=== PATIENT | male | born 1955 | race Caucasian/White ===

== ENCOUNTER → 2017-02-24 | Day surgery (SDC) | payer BC ==
[~2017-02-24] MED LIST: ASPI-482 PO; ATOR20TA58 PO; CHOL200074 PO; IV RINGERS,LACTATED 1000ML 1,000 ML IV SCH; LIDOCAINE 2% PF Vial for OR 5 ML VIAL. ONE; LISI1TAB7 PO; OMEG500C PO; PROPOFOL 0 ML IV ONE
[2017-02-24 15:43] VITALS: BP 133/72
--- NOTE | 2017-02-25 04:31 | CONS ---
DATE OF CONSULTATION: 02/24/2017 REASON FOR CONSULTATION: Possible meat impaction. HISTORY OF PRESENT ILLNESS: This is a 62-year-old male with past medical history significant for hypertension, hyperlipidemia, osteoarthrosis, status post tonsillectomy and ankle fracture, is seen with food impaction today after eating lunch at [facility] physicians' lounge. He has had increased difficulty with maintaining hydration, is unable to swallow liquids or solids, has coughed up some carrots, but feels a piece of turkey still may be stuck. He does have intermittent difficulties with dysphagia. He has had no chronic heartburn, no change in weight, no bleeding. He is otherwise without additional complaints. PAST MEDICAL HISTORY: Hypertension, hyperlipidemia, osteoarthrosis, status post tonsillectomy and ankle fracture. MEDICATIONS: Presently include aspirin, atorvastatin, vitamin D, lisinopril/hydrochlorothiazide, omega 3. ALLERGIES: None. FAMILY AND SOCIAL HISTORY: He is employed. Does not drink or smoke. He is an MD anesthesiologist. REVIEW OF SYSTEMS: Per records. PHYSICAL EXAMINATION: VITAL SIGNS: Temperature is 98.5, pulse 87, respiratory rate 20, blood pressure ____. HEENT: Reveals a normocephalic, atraumatic head. Pupils and extraocular muscles not tested. Sclerae anicteric. NECK: Supple. LUNGS: Clear. CARDIOVASCULAR: Reveals an S1, S2 without S3, S4 or appreciable murmur. ABDOMEN: Soft abdomen, normal bowel sounds, without appreciable hepatosplenomegaly or crepitus. EXTREMITIES: Reveal no cyanosis, clubbing or edema. IMPRESSION: Dysphagia, most likely secondary to Schatzki's ring, Mora's, malignancy, achalasia certainly are possible as well. We will therefore recommend upper endoscopy, possible biopsy and dilatation. Risks and benefits of the procedure have been discussed with the patient who is willing to proceed at this time. I would like to thank ____ for allowing me to consult and participate in the patient's care. NEAL ROPER MD DR: MILAGRO/fatuma JOB#: [id number] / [id number]
--- NOTE | 2017-02-26 11:10 | PATHOLOGY ---
PATHOLOGY REPORT * * * * * * * * FINAL DIAGNOSIS: Gastric biopsies, gastric ulcers: - Chronic gastritis, mild. (JPM:logan; 02/26/2017) COMMENT: Sections of the gastric biopsy reveal segments of gastric antral mucosa showing congestion and predominantly superficial, mild chronic inflammation. There are scattered admixed eosinophils. An immunoperoxidase stain for Helicobacter is obtained. No Helicobacter organisms are identified. There is no evidence of malignancy. Special stain performed: Immunoperoxidase stain for Helicobacter. (JPM:logan; 02/26/2017) REPORT ELECTRONICALLY SIGNED BY: Yvan Valle M.D. DATE/TIME: 02/26/2017 11:09 * * * * * * * * GROSS PATHOLOGY: Received in formalin labeled "[place], biopsy gastric ulcers," are two segments of muniz soft tissue measuring 0.3 and 0.4 cm in maximum dimension. The specimen is submitted entirely in cassette A1. (JPM; 02/25/17) INITIAL CPT CODE(S): A; 63071, 19130 Professional services performed [place] [facility] [address] Technical services performed by [facility] at [address] [place] [address]. SPECIMEN(S) RECEIVED: A.Gastric ulcers CLINICAL HISTORY: Dysphagia; gastric ulcer PATIENT: ZE HILL /AGE: 701/28/1955 (Age: 62) PATIENT #: [id number] ALT CASE #: SPECIMEN COLLECTION DATE: 02/24/2017 SPECIMEN RECEIVED DATE: 02/25/2017 [facility] [place] [address] - PHONE: [phone] * * * END OF REPORT * * *
== END | disposition home or self-care (01) ==
LOC: SURG 14:27
PROVIDERS: ATTEND Internal Medicine Gastroenterology
DX: K22.2 Esophageal obstruction (principal); K25.9 Gastric ulcer, unspecified as acute or chronic, without hemorrhage or perforation; E78.00 Pure hypercholesterolemia, unspecified; I10 Essential (primary) hypertension; E11.9 Type 2 diabetes mellitus without complications; Z86.39 Personal history of other endocrine, nutritional and metabolic disease
CPT/HCPCS: 43239; 43450; J2001; J2704

== ENCOUNTER → 2017-07-09 | Day surgery (SDC) | payer BC ==
[~2017-07-09] MED LIST changes: -ASPI-482 PO; -ATOR20TA58 PO; -CHOL200074 PO; -IV RINGERS,LACTATED 1000ML 1,000 ML IV SCH; +LIDOCAINE 2% PF Vial for OR 5 ML VIAL.; -LIDOCAINE 2% PF Vial for OR 5 ML VIAL. ONE; -LISI1TAB7 PO; -OMEG500C PO; +ONDANSETRON PF 4 MG/2 ML VIAL.; -PROPOFOL 0 ML IV ONE; +PROPOFOL 20 ML IV
== END | disposition home or self-care (01) ==
LOC: SURG 11:12
DX: K29.50 Unspecified chronic gastritis without bleeding (principal); K25.7 Chronic gastric ulcer without hemorrhage or perforation; I10 Essential (primary) hypertension; E78.5 Hyperlipidemia, unspecified; G47.33 Obstructive sleep apnea (adult) (pediatric); E11.9 Type 2 diabetes mellitus without complications; Z79.84 Long term (current) use of oral hypoglycemic drugs; Z79.82 Long term (current) use of aspirin; Z98.890 Other specified postprocedural states; M19.90 Unspecified osteoarthritis, unspecified site
CPT/HCPCS: 43235; J2405; J2704

== ENCOUNTER → 2018-11-10 | Day surgery (SDC) | payer BC ==
[~2018-11-10] MED LIST changes: +ASPI-482 PO; +ATOR20TA58 PO; +ATOR40TA PO; +CHOL200074 PO; +IV RINGERS,LACTATED 1000ML 1,000 ML IV SCH; +LACT1CAP29 PO; -LIDOCAINE 2% PF Vial for OR 5 ML VIAL.; +LISI-334 PO; +LISI1TAB7 PO; +METF10007 PO; +METH-39 PO; +OMEG500C PO; +OMEP20TA8 PO; -ONDANSETRON PF 4 MG/2 ML VIAL.; -PROPOFOL 20 ML IV; +PROPOFOL 40 ML IV ONE; +TAMS0.4C2 PO
[2018-11-10 10:00] VITALS: BP 103/67
--- NOTE | 2018-11-10 19:05 | CONS ---
DATE OF CONSULTATION: 11/10/2018 REFERRING PHYSICIAN: Juan Akers MD. REASON FOR CONSULTATION: Dysphagia, history of Schatzki's ring and family history of colon cancer. HISTORY OF PRESENT ILLNESS: A 63-year-old male whose past medical history is significant for hyperlipidemia, hypertension, osteoarthrosis, tonsillectomy and ankle fracture repair, is seen for colorectal screening with family history of colon cancer. Grandfather in his early 50s, last exam did reveal diverticulosis, been no change in bowel habits, diarrhea, bleeding, constipation. He has otherwise been in good health with stable weight. He does take omeprazole on intermittent basis for heartburn, has intermittent solid food dysphagia in the distal esophagus, which has been dilated before, which has been recurring. He otherwise is without additional complaints. PAST MEDICAL HISTORY: Hypertension, hyperlipidemia, osteoarthrosis, status post tonsillectomy and ankle fracture. ALLERGIES: None. MEDICATIONS: Include aspirin, atorvastatin, lactobacillus, lisinopril, metformin, omega 3 fatty acids. FAMILY AND SOCIAL HISTORY: Significant for colon cancer with grandpa. 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 REVIEW OF SYSTEMS: Per records. PHYSICAL EXAMINATION: GENERAL: Reveals a well-nourished, well-developed male, who is alert, cooperative, in no acute distress. VITAL SIGNS: Temperature is 98, pulse 72, respiratory rate 20. HEENT: Normocephalic, atraumatic head. Pupils and extraocular movements are not tested. Sclerae anicteric. NECK: Supple. LUNGS: Clear. CARDIOVASCULAR: Reveals an S1, S2 without S3, S4 or appreciable murmur. ABDOMEN: Soft abdomen, normal bowel sounds without appreciable hepatosplenomegaly. EXTREMITIES: Reveals no cyanosis, clubbing, edema. IMPRESSION: 1. Dysphagia, most likely secondary to recurrent Schatzki's ring. We will recommend EGD with possible biopsy and dilatation. Risks, benefits were discussed with the patient including risk of hemorrhage and perforation and he is willing to proceed. 2. Colorectal screening with positive family history of colon cancer is warranted at this time. NEAL ROPER MD DR: MILAGRO/fatuma JOB#: [id number] / [id number]
== END | disposition home or self-care (01) ==
LOC: SURG 07:44
PROVIDERS: ATTEND Internal Medicine Gastroenterology
DX: Z12.11 Encounter for screening for malignant neoplasm of colon (principal); K57.30 Diverticulosis of large intestine without perforation or abscess without bleeding; K64.0 First degree hemorrhoids; K22.2 Esophageal obstruction; K29.50 Unspecified chronic gastritis without bleeding; K26.9 Duodenal ulcer, unspecified as acute or chronic, without hemorrhage or perforation; I10 Essential (primary) hypertension; E78.5 Hyperlipidemia, unspecified; M19.90 Unspecified osteoarthritis, unspecified site; Z98.890 Other specified postprocedural states; Z79.82 Long term (current) use of aspirin; Z79.899 Other long term (current) drug therapy; Z80.0 Family history of malignant neoplasm of digestive organs; Z87.11 Personal history of peptic ulcer disease
CPT/HCPCS: 43235; 43450; 45378; J2704

== ENCOUNTER → 2020-06-01 | Outpatient (CLI) | payer BC ==
[2018-11-10 10:00] VITALS: BP 103/67
[~2020-06-01] MED LIST changes: -IV RINGERS,LACTATED 1000ML 1,000 ML IV SCH; +LISI1TAB20 PO; -LISI1TAB7 PO; -PROPOFOL 40 ML IV ONE
== END ==
LOC: LAB 11:18
PROVIDERS: ATTEND Internal Medicine Pulmonary Disease
DX: R11.2 Nausea with vomiting, unspecified (principal); Z20.828 Contact with and (suspected) exposure to other viral communicable diseases
CPT/HCPCS: 87426; U0003